=== PATIENT | female | born 1980 | race Caucasian/White ===

== ENCOUNTER 2022-10-08 13:29 | Outpatient (CLI) | payer BC, SELFPAY ==
--- NOTE | 2022-10-08 13:40 | CRLHL7_ITS ---
For Patients: As a result of the Cures Act, medical imaging exams and procedure reports are released immediately into your electronic medical record. You may view this report before your referring provider. If you have questions, please contact your health care provider. BILATERAL SCREENING MAMMOGRAM WITH COMPUTER-AIDED DETECTION AND TOMOSYNTHESIS TECHNIQUE: CC and MLO views were obtained. These mammographic images have been obtained using full-field digital technique. These mammographic images were interpreted with the benefit of computer-aided detection. Breast Tomosynthesis was used in this interpretation. COMPARISON FILM: 09/19/20, 07/27/19, 07/23/18. FINDINGS: The breasts are heterogeneously dense, which may obscure small masses IMPRESSION: There is no radiographic evidence for malignancy. ASSESSMENT: BI-RADS Category 1: Negative RECOMMENDATION: Routine screening mammogram in 1 year. A lay language report of this examination will be provided to the patient. Mendel Haney M.D. Diagnostic Radiologist [email or web address] DIEGO/nay / be/Dictated by: Mendel Haney MD @ 10/09/2022 12:23:00 PM (Electronically Signed)
== END 2022-10-08 13:30 | disposition home or self-care (01) ==
LOC: MAMMO 13:30
PROVIDERS: PCP Obstetrics & Gynecology; Visit Provider Physician Assistant
DX: Z12.31 Encounter for screening mammogram for malignant neoplasm of breast (principal); R92.2 Inconclusive mammogram
CPT/HCPCS: 77063; 77067

== ENCOUNTER 2022-11-22 08:50 | Outpatient (CLI) | payer BC, SELFPAY | END 2022-11-22 08:51 | disposition home or self-care (01) | LOC: NFLDREF 11-23 06:46 | PROVIDERS: PCP Obstetrics & Gynecology; Referring Provider Obstetrics & Gynecology; Visit Provider Obstetrics & Gynecology | DX: Z01.419 Encounter for gynecological examination (general) (routine) without abnormal findings (principal); Z13.6 Encounter for screening for cardiovascular disorders; Z13.1 Encounter for screening for diabetes mellitus | CPT/HCPCS: 80061; 82947 ==

== ENCOUNTER 2023-10-09 15:14 | Outpatient (CLI) | payer BC, SELFPAY ==
--- NOTE | 2023-10-09 15:20 | MM_ITS ---
Patient: SANGEETHA GREEN Facility:?[facility] Patient ID:?[id number] Site Patient ID:?[id number]. Site :?1980 Study:?XRay-Breast Bilateral 3D W/CAD-10/09/2023 4:33:19 PM Ordering Physician:Ge Final Report: BILATERAL DIGITAL SCREENING MAMMOGRAM WITH COMPUTER-AIDED DETECTION AND TOMOSYNTHESIS CLINICAL HISTORY: Routine screening exam. COMPARISON: 10/08/2022, 10/02/2021, 09/19/2020, 07/27/2019. TECHNIQUE: Digital mammogram in CC and MLO projections including computer-aided detection (CAD). Tomosynthesis was used. BREAST COMPOSITION: The breasts are heterogeneously dense, which may obscure small masses FINDINGS: RIGHT Breast: No suspicious findings. LEFT Breast: Focal asymmetric density upper-outer quadrant 2 o`clock 7 cm from the nipple. IMPRESSION: LEFT breast asymmetry/mass. RECOMMENDATIONS: Additional mammographic views of the LEFT breast including 3D spot-compression MLO and 3D XCCL. LEFT breast ultrasound may also be required. BI-RADS Category 0: Incomplete: Need Additional Imaging Evaluation and/or Prior Mammograms for Comparison. The [facility] will contact the patient for follow-up. A lay language report of this examination will be provided to the patient. Dictated by Mendel Haney MD @ 10/10/2023 12:52:55 PM/seamus BEATRICE/Dictated by: Mendel Haney MD @ 10/10/2023 12:52:00 PM Signed by:?Mendel Haney MD @10/10/2023 3:04:04 PM (Electronic Signature)
== END 2023-10-09 15:15 | disposition home or self-care (01) ==
LOC: MAMMO 15:15
PROVIDERS: PCP Obstetrics & Gynecology; Visit Provider Obstetrics & Gynecology
DX: Z12.31 Encounter for screening mammogram for malignant neoplasm of breast (principal); R92.2 Inconclusive mammogram
CPT/HCPCS: 77063; 77067

== ENCOUNTER 2023-10-29 10:34 | Outpatient (CLI) | payer BC, SELFPAY ==
--- NOTE | 2023-10-29 10:45 | MM_ITS ---
Patient: SANGEETHA GREEN Facility:?[facility] Patient ID:?[id number] Site Patient ID:?[id number]. Site :?1980 Study:?XRay-Breast Left 3D W/CAD-10/29/2023 11:08:06 AM Ordering Physician:[place] Final Report: DIGITAL DIAGNOSTIC LEFT MAMMOGRAM USING TOMOSYNTHESIS AND COMPUTER-AIDED DETECTION LEFT BREAST ULTRASOUND CLINICAL HISTORY: LEFT breast mass/asymmetry. COMPARISON: 10/09/2023, 10/08/2022, 10/02/2021, 09/19/2020. TECHNIQUE: Digital LEFT mammogram in two projections. Tomosynthesis utilized. Real-time ultrasound imaging of LEFT breast with imaging documentation. Scanning was performed by both the technologist and the radiologist. BREAST COMPOSITION: The breast is heterogeneously dense, which may obscure small masses. FINDINGS: 3D spot compression XCCL/MLO left breast mammogram images submitted. Lobular density within the upper outer quadrant left breast is present. Stable benign punctate calcifications also noted. Targeted left breast ultrasound performed at 2 o`clock 6 cm from the nipple. In this location there is a heterogeneous masslike area measuring approximately 1.8 x 1.0 x 3.3 cm. IMPRESSION: Indeterminate heterogeneous masslike area left breast 2 o`clock 6 cm from the nipple measuring 1.8 x 1.0 x 3.3 cm, possible benign hamartoma. RECOMMENDATIONS: Ultrasound-guided core needle biopsy. Results and recommendations discussed with the patient. BI-RADS Category 4: Suspicious A lay language report of this examination will be provided to the patient. Dictated by Mendel Haney MD @ 10/29/2023 11:47:29 AM jj/Dictated by: Mendel Haney MD @ 10/29/2023 11:47:00 AM Signed by:?Mendel Haney MD @10/29/2023 1:54:29 PM (Electronic Signature)
--- NOTE | 2023-10-29 11:15 | US_ITS ---
Patient: SANGEETHA GREEN Facility:?[facility] Patient ID:?[id number] Site Patient ID:?[id number]. Site :?1980 Study:?US-Breast Left -10/29/2023 11:12:56 AM Ordering Physician:LÁZARO Final Report: PLEASE SEE DIGITAL DIAGNOSTIC LEFT MAMMOGRAM PERFORMED SAME DAY CRL:[email or web address] zhong/Dictated by: Mendel Haney MD @ 10/29/2023 11:47:00 AM Signed by:?Mendel Haney MD @10/29/2023 1:54:30 PM (Electronic Signature)
== END 2023-10-29 10:35 | disposition home or self-care (01) ==
LOC: MAMMO 10:34
PROVIDERS: Visit Provider Obstetrics & Gynecology
DX: N63.20 Unspecified lump in the left breast, unspecified quadrant (principal); R92.8 Other abnormal and inconclusive findings on diagnostic imaging of breast
CPT/HCPCS: 76642; 77065; G0279

== ENCOUNTER 2023-11-19 09:01 | Outpatient (CLI) | payer BC, SELFPAY ==
--- NOTE | 2023-11-19 09:15 | US_ITS ---
Patient: SANGEETHA GREEN Facility:?[facility] Patient ID:?[id number] Site Patient ID:?[id number]. Site :?1980 Study:?US-Breast Left DR WARREN TO READ-11/19/2023 9:42:58 AM Ordering Physician:?SURJIT THOMSON Final Report: ULTRASOUND-GUIDED BREAST BIOPSY AND POST-BIOPSY DIGITAL MAMMOGRAM FOR BIOPSY MARKER PLACEMENT CLINICAL HISTORY: Indeterminate mass, possible benign hamartoma. COMPARISON STUDIES: 10/29/2023, 10/09/2023. TECHNIQUE: Real-time ultrasound with image documentation was used for targeting the breast lesion. Core biopsy specimens were obtained using an automated gun with an 18- gauge biopsy needle. Post-biopsy CC and ML digital mammograms were obtained to document position of the biopsy marker. CONSENT and TIME OUT: The procedure, risks, and alternatives were explained to the patient and a consent was signed. [place] Protocol was followed including pre-procedure verification that relevant information/documentation was available, reviewed and properly matched to the patient; consent accurate and complete; and equipment and supplies available. Time Out was conducted just prior to starting procedure to verify the four required elements: patient identity, correct side/site marked (if applicable), procedure, relevant images/results properly labeled and displayed (if applicable). PROCEDURE: The patient was positioned supine on the ultrasound table. The breast was prepped with ChloraPrep. 8 cc 1 percent lidocaine used for local anesthesia. Core samples were obtained. A sterile metal biopsy clip was placed percutaneously to hussein the lesion position within the breast. The specimens were placed in 10% formalin and sent to the pathology department. Pressure was held on the biopsy site until all bleeding subsided. The skin incision was closed with Steri-Strips. An ice pack was positioned over the biopsy site. Post-biopsy instructions were reviewed with the patient, and a written copy was given to her. LATERALITY: LEFT breast. LESION: [place] circumscribed mixed echogenicity solid and cystic lesion measuring 18 x 10 x 33 millimeters at 2 o`clock 6 cm from the nipple. SUSPICION FOR MALIGNANCY: Low, probable hamartoma. NUMBER OF SAMPLES: 5. BIOPSY CLIP SHAPE: Oval. PROXIMITY OF CLIP TO TARGET: Within the lesion. IMPRESSION: Ultrasound-guided breast biopsy. When the pathology report is available, an addendum to this report will be made. ACR not applicable Dictated by Mendel Warren MD @ 11/19/2023 10:55:54 AM farheen/Dictated by: Mendel Warren MD @ 11/19/2023 10:55:00 AM Signed by:?Mendel Warren MD @11/19/2023 1:11:08 PM --ADDENDUM-- ADDENDUM: Pathology consistent with benign breast tissue including dense stromal fibrosis. No evidence of atypia or malignancy. This is concordant. Routine screening mammography recommended. Dictated by: Mendel Warren MD @11/24/2023 11:24:42 AM / CRL:farheen Signed by:?Mendel Warren MD @11/24/2023 12:00:23 PM (Electronic Signature)
--- NOTE | 2023-11-19 10:00 | MM_ITS ---
Patient: SANGEETHA GREEN Facility:?[facility] Patient ID:?[id number] Site Patient ID:?[id number]. Site :?1980 Study:?XRay-Breast Left 2D W/CAD-11/19/2023 9:46:02 AM Ordering Physician:?Cheyenne Burns Final Report: PLEASE SEE ULTRASOUND-GUIDED LEFT BREAST BIOPSY PERFORMED SAME DAY CRL:farheen zhong/Dictated by: Mendel Haney MD @ 11/19/2023 10:54:00 AM Signed by:?Mendel Haney MD @11/19/2023 1:11:10 PM (Electronic Signature)
== END 2023-11-19 09:02 | disposition home or self-care (01) ==
LOC: US 09:02
PROVIDERS: Visit Provider Obstetrics & Gynecology
DX: N63.20 Unspecified lump in the left breast, unspecified quadrant (principal)
CPT/HCPCS: 19083; 77065; 88305; A4648; A4649

== ENCOUNTER 2024-10-29 13:02 | Outpatient (CLI) | payer BC, SELFPAY ==
--- NOTE | 2024-10-29 13:00 | CRLHL7_ITS ---
For Patients: As a result of the Century Cures Act, medical imaging exams and procedure reports are released immediately into your electronic medical record. You may view this report before your referring provider. If you have questions, please contact your health care provider. BILATERAL SCREENING MAMMOGRAM WITH COMPUTER-AIDED DETECTION AND TOMOSYNTHESIS TECHNIQUE: CC and MLO views were obtained. These mammographic images have been obtained using full-field digital technique. These mammographic images were interpreted with the benefit of computer-aided detection. Breast Tomosynthesis was used in this interpretation. COMPARISON FILM: 10/09/23, 10/08/22, 10/02/21. FINDINGS: The breasts are extremely dense, which lowers the sensitivity of mammography. IMPRESSION: There is no radiographic evidence for malignancy. ASSESSMENT: BI-RADS Category 1: Negative RECOMMENDATION: Routine screening mammogram in 1 year. A lay language report of this examination will be provided to the patient. Mendel Haney M.D. Diagnostic Radiologist [email or web address] SP/Dictated by: Mendel Haney MD @ 11/01/2024 8:53:00 AM (Electronically Signed)
== END 2024-10-29 13:03 | disposition home or self-care (01) ==
LOC: MAMMO 13:03
PROVIDERS: Visit Provider Obstetrics & Gynecology
DX: Z12.31 Encounter for screening mammogram for malignant neoplasm of breast (principal); R92.343 Mammographic extreme density, bilateral breasts
CPT/HCPCS: 77063; 77067